=== PATIENT | male | born 1950 | race Caucasian/White ===

== ENCOUNTER 2025-02-15 06:24 | Day surgery (SDC) | payer MEDICARE ==
[~2025-02-15] VITALS: Ht 175.3 cm; Wt 53.8 kg
[~2025-02-15 06:24] MED LIST: LEVO88TA3 PO; SENN-186 PO; THERTAB52 PO; VITATAB73 PO
[2025-02-15] MEDS ORDERED: LIDOCAINE 1% SDV 5ML VIAL SC PRN (06:55)
[2025-02-15] MEDS: ALBUTEROL SULFATE 2.5MG/0.5ML INH NEB SOLN INH ONE (07:19)
[2025-02-15] MEDS: LIDOCAINE PRES-FREE 2% 10ML AMP NEB ONE (07:19)
[2025-02-15] MEDS: LR 1,000 ML IV SCH (07:19)
[2025-02-15] MEDS ORDERED: propofoL 200 MG/20 ML VIAL As Ordered ONE (07:21)
[2025-02-15] MEDS ORDERED: LIDOCAINE 2% 100MG/5ML SDV (FOR ANES.) As Ordered ONE (07:21)
[2025-02-15] MEDS ORDERED: ROCURONIUM BROMIDE 50MG/5ML VIAL As Ordered ONE (07:21)
[2025-02-15] MEDS ORDERED: ONDANSETRON 4MG 2ML VIAL As Ordered ONE (07:21)
[2025-02-15] MEDS ORDERED: MIDAZOLAM INJ 2MG/2ML VIAL As Ordered ONE (07:22)
[2025-02-15] MEDS ORDERED: fentaNYL 100 MCG/2 ML INJECTION As Ordered ONE (07:22)
[2025-02-15] MEDS ORDERED: SUGAMMADEX SODIUM 500 MG/5 ML VIAL (BRIDION) As Ordered ONE (08:10)
[2025-02-15] MEDS ORDERED: PHENYLephrine 500MCG 5ML (100MCG/ML) SYRINGE As Ordered ONE (08:15)
[2025-02-15] MEDS: CETACAINE SPRAY 5GM As Ordered ONE (08:16)
[2025-02-15] MEDS: EPINEPHrine 1MG/10ML SYRINGE 1.5IN As Ordered ONE (08:30)
[2025-02-15] MEDS ORDERED: ACETAMINOPHEN 1000MG/100ML IV BAG As Ordered ONE (08:34)
[2025-02-15] MEDS: THROMBIN 5,000 UNITS VIAL As Ordered ONE (08:40)
[2025-02-15] MEDS ORDERED: LR 1,000 ML IV SCH (09:05)
[2025-02-15] MEDS ORDERED: oxyCODONE 5MG TAB PO PRN (09:05)
[2025-02-15] MEDS ORDERED: fentaNYL 100 MCG/2 ML INJECTION IV PRN (09:05)
[2025-02-15] MEDS ORDERED: ONDANSETRON 4MG 2ML VIAL IV PRN (09:05)
[2025-02-15 10:49] VITALS: BP 149/64; TEMP 98; O2SAT 95
== END 2025-02-15 10:03 | disposition home or self-care (01) ==
LOC: M SDC 06:24
PROVIDERS: ATTEND Internal Medicine Pulmonary Disease
DX: C34.11 Malignant neoplasm of upper lobe, right bronchus or lung (principal); C77.1 Secondary and unspecified malignant neoplasm of intrathoracic lymph nodes; Z92.21 Personal history of antineoplastic chemotherapy; Z92.3 Personal history of irradiation; Z85.51 Personal history of malignant neoplasm of bladder; Z79.899 Other long term (current) drug therapy; E03.9 Hypothyroidism, unspecified; F17.210 Nicotine dependence, cigarettes, uncomplicated
CPT/HCPCS: 31624; 31627; 31628; 31629; 31654; 71045; 76000; 88108; 88173; 88305; 88313; 93005; C1601; J0131; J0171; J1100; J2250; J2371; J2405; J3010; S2900